=== PATIENT | female | born 1935 | race Caucasian/White ===

== ENCOUNTER 2019-03-01 07:10 | Inpatient (IN) ==
[2019-03-01] MEDS ORDERED: HYDROmorphone 2 MG/1 ML VIAL IV STA (07:31)
[2019-03-01] MEDS ORDERED: SODIUM CHLORIDE 0.9% 1,000 ML IV STA (07:31)
[2019-03-01] MEDS ORDERED: ONDANSETRON 4 MG/2 ML VIAL IV STA (07:31)
[2019-03-01 08:08] LABS: Basophils # 0.1 10*3/uL (0.0-0.2); Basophils % 0.6 % (0.0-0.8); Eosinophils # 0.1 10*3/uL (0.0-0.87); Eosinophils % 1.6 % (0.00-10.9); Hematocrit 44.3 VOL% (35.7-47.0); Hemoglobin 14.1 GM/DL (12.0-16.0); Immature Granulocytes % 0.4 %; Immature Granulocytes Absolute 0.03 #; Lymphocytes # 1.2 10*3/uL (1.4-4.0); Mean Corpuscular HGB Conc 31.8 GM/DL (32-36); Mean Corpuscular Volume 88.4 FL (87-102); Mean Platelet Volume 9.1 FL (9.6-12.0); Monocytes % 8.5 % (1.7-12.7); Neutrophils % 73.9 % (38.7-73.9); Platelet Count 246 T/CUMM (130-400); Red Blood Count 5.01 MC/CUMM (3.8-5.5); Red Cell Distribution Width 13.7 % (9.3-17.3); White Blood Count 8.2 T/CUMM (4-12)
[2019-03-01 08:26] LABS: Albumin 3.7 G/DL (3.4-5.0); Bilirubin,Total 0.5 MG/DL (0.2-1.0); Calcium 9.6 MG/DL (8.5-10.1); Osmolality,Calculated 284.3 MOS/KG (273-304); Total Protein 7.7 G/DL (6.4-8.3)
[2019-03-01 08:28] LABS: Apearance,Urine CLEAR (Clear); Bacteria,Urine Occasional /HPF (Few); Bilirubin,Urine Negative (Negative); Blood, Urine Small mg/dL (Negative); Glucose,Urine (UA) Negative (Negative); Ketones,Urine 20 mg/dL (Negative); Mucus,Urine Occasional /LPF (Occasional); Nitrite,Urine Positive (Negative); Protein,Urine Negative; RBC,Urine 6 /HPF (0-4); Squamous Epithelial Cell,Urine Occasional /HPF (0-10); Urine Specific Gravity 1.035 (1.001-1.035); WBC,Urine 7 /HPF (0-6)
[2019-03-01 08:33] LABS: Urine Color Yellow (Yellow)
[2019-03-01] MEDS ORDERED: LEVOFLOXACIN INJ 500 MG in PREMIX 1 EACH IV STA (09:04)
[2019-03-01] MEDS: SODIUM CHLORIDE 0.9% 1,000 ML IV SCH ×2 (11:21→22:13)
[2019-03-01] MEDS: HEPARIN 5,000 UNIT/1 ML VIAL SUBCUT SCH ×2 (12:54→17:55)
[2019-03-01] MEDS: MORPHINE 4 MG/1 ML VIAL IV PRN ×2 (12:54→22:07)
[2019-03-01] MEDS: ONDANSETRON 4 MG/2 ML VIAL IV PRN (22:08)
[2019-03-02] MEDS: HEPARIN 5,000 UNIT/1 ML VIAL SUBCUT SCH ×3 (01:44→17:51)
[2019-03-02] MEDS: ONDANSETRON 4 MG/2 ML VIAL IV PRN (04:27)
[2019-03-02] MEDS: MORPHINE 4 MG/1 ML VIAL IV PRN (04:27)
[2019-03-02] MEDS: LEVOTHYROXINE 100 MCG VIAL IV SCH (06:16)
[2019-03-02 06:28] LABS: Basophils % 0.6 % (0.0-0.8); Eosinophils # 0.1 10*3/uL (0.0-0.87); Eosinophils % 1.7 % (0.00-10.9); Hematocrit 40.6 VOL% (35.7-47.0); Hemoglobin 12.6 GM/DL (12.0-16.0); Immature Granulocytes % 0.3 %; Immature Granulocytes Absolute 0.02 #; Lymphocytes # 1.7 10*3/uL (1.4-4.0); Lymphocytes % 23.9 % (21.3-54.2); Mean Corpuscular Volume 89.8 FL (87-102); Mean Platelet Volume 9.3 FL (9.6-12.0); Monocytes % 9.4 % (1.7-12.7); Neutrophils % 64.1 % (38.7-73.9); Platelet Count 215 T/CUMM (130-400); Red Blood Count 4.52 MC/CUMM (3.8-5.5); Red Cell Distribution Width 13.5 % (9.3-17.3); White Blood Count 6.9 T/CUMM (4-12)
[2019-03-02 06:57] LABS: Bilirubin,Total 0.8 MG/DL (0.2-1.0); Calcium 8.9 MG/DL (8.5-10.1); Osmolality,Calculated 283.1 MOS/KG (273-304); Thyroid Stimulating Hormone 1.86 uIU/ml (0.358-3.74); Total Protein 6.4 G/DL (6.4-8.3)
[2019-03-02] MEDS: PANTOPRAZOLE 40 MG VIAL IV SCH (09:29)
[2019-03-02] MEDS: LEVOFLOXACIN INJ 500 MG in PREMIX 1 EACH IV SCH (09:29)
[2019-03-02] MEDS: SODIUM CHLORIDE 0.9% 1,000 ML IV SCH ×2 (09:34→22:42)
[2019-03-03] MEDS: HEPARIN 5,000 UNIT/1 ML VIAL SUBCUT SCH ×3 (01:01→17:30)
[2019-03-03 05:50] LABS: Basophils % 0.6 % (0.0-0.8); Eosinophils # 0.3 10*3/uL (0.0-0.87); Hematocrit 41.8 VOL% (35.7-47.0); Hemoglobin 13.1 GM/DL (12.0-16.0); Immature Granulocytes % 0.4 %; Immature Granulocytes Absolute 0.02 #; Lymphocytes # 1.9 10*3/uL (1.4-4.0); Lymphocytes % 35.7 % (21.3-54.2); Mean Corpuscular HGB Conc 31.3 GM/DL (32-36); Mean Corpuscular Volume 89.3 FL (87-102); Mean Platelet Volume 9.1 FL (9.6-12.0); Monocytes % 8.4 % (1.7-12.7); Neutrophils % 49.9 % (38.7-73.9); Platelet Count 205 T/CUMM (130-400); Red Blood Count 4.68 MC/CUMM (3.8-5.5); Red Cell Distribution Width 13.3 % (9.3-17.3); White Blood Count 5.4 T/CUMM (4-12)
[2019-03-03] MEDS: LEVOTHYROXINE 100 MCG VIAL IV SCH (06:15)
[2019-03-03 06:19] LABS: Albumin 3.2 G/DL (3.4-5.0); Bilirubin,Total 0.8 MG/DL (0.2-1.0); Calcium 8.9 MG/DL (8.5-10.1); Total Protein 6.9 G/DL (6.4-8.3)
[2019-03-03] MEDS: PANTOPRAZOLE 40 MG VIAL IV SCH (09:39)
[2019-03-03] MEDS: SODIUM CHLORIDE 0.9% 1,000 ML IV SCH (09:45)
[2019-03-03] MEDS: LEVOFLOXACIN INJ 500 MG in PREMIX 1 EACH IV SCH (09:45)
[2019-03-03] MEDS: PANTOPRAZOLE 40 MG TABLET PO SCH (09:45)
[2019-03-03] MEDS ORDERED: ASPIRIN EC 81 MG TABLET PO SCH (21:00)
[2019-03-03] MEDS ORDERED: SIMVASTATIN 10 MG TABLET PO SCH (21:00)
[2019-03-04] MEDS: HEPARIN 5,000 UNIT/1 ML VIAL SUBCUT SCH ×2 (03:04→09:14)
[2019-03-04] MEDS ORDERED: LEVOTHYROXINE 50 MCG TABLET PO SCH (07:00)
[2019-03-04] MEDS: PANTOPRAZOLE 40 MG TABLET PO SCH (09:15)
[2019-03-04 12:04] VITALS: BP 126/68
== END 2019-03-04 13:45 | disposition home or self-care (01) | DRG 389 ==
LOC: N.ED 07:10 → INTOOBSV 09:03 → N.EDINP 09:03 → N.5E 10:15 → SUATTDRO 03-02 15:56
PROVIDERS: ADMIT Family Medicine; ATTEND Internal Medicine